=== PATIENT | female | born 1960 | race Caucasian/White ===

== ENCOUNTER 2020-10-20 12:37 | Observation (INO) | payer OTHER ==
[2020-10-20] MEDS ORDERED: ONDANSETRON 4 MG/2 ML VIAL IVP STA (13:56)
[2020-10-20] MEDS ORDERED: SODIUM CHLORIDE 0.9% 1,000 ML IV STA (13:56)
[2020-10-20] MEDS ORDERED: MECLIZINE 12.5 MG TAB PO STA (13:56)
--- NOTE | 2020-10-20 14:06 | ED ---
General Adult HPI - General Source: patient, RN notes reviewed, old records reviewed Mode of arrival: ambulatory Limitations: no limitations <Jose Alfredo Medina - Last Filed: 10/20/20 14:01> <Deidra Martinez - Last Filed: 10/21/20 12:48> - General Chief complaint: Dizziness Stated complaint: Dizzy Time Seen by Provider: 10/20/20 13:46 - History of Present Illness Initial comments: 60-year-old female presenting with chief complaint of dizziness. Symptoms began this morning. She states she feels that the room is spinning this is worse with movement, worse with opening her eyes. She had a similar episode within the past few weeks which resolved without treatment. She has no previous history of CVA or TIA. She has no chest pain. No focal numbness or weakness. No abdominal pain. She has some mild nausea. No fever. No other symptoms. (Jose Alfredo Medina) - Related Data Home Medications Medication Instructions Recorded Confirmed Ascorbic Acid [Vitamin C] 500 mg PO DAILY 10/20/20 10/20/20 Calcium Carbonate/Vitamin D3 1 tab PO DAILY 10/20/20 10/20/20 [Calcium 600-Vit D3 5 Mcg (200 Iu)] Cholecalciferol [Vitamin D3 (25 50 mcg PO DAILY 10/20/20 10/20/20 Mcg = 1000 Iu)] Multivitamin [Multivitamins Adult 1 tab PO DAILY 10/20/20 10/20/20 Gummies] Zinc 50 mg PO DAILY 10/20/20 10/20/20 Previous Rx's Medication Instructions Recorded Famotidine [Pepcid] 20 mg PO BID #20 tablet 10/21/20 Meclizine [Antivert] 12.5 mg PO TID PRN #30 tablet 10/21/20 amLODIPine [Norvasc] 5 mg PO DAILY #30 tab 10/21/20 methylPREDNISolone Dose Pack 4 mg PO DIRECTED #21 package 10/21/20 [Medrol Dose Pack] Allergies Allergy/AdvReac Type Severity Reaction Status Date / Time No Known Allergies Allergy Verified 10/20/20 17:39 Review of Systems ROS Other: All systems not noted in ROS Statement are negative. <Jose Alfredo Medina - Last Filed: 10/20/20 14:01> ROS Other: All systems not noted in ROS Statement are negative. <Deidra Martinez Jasmyne - Last Filed: 10/21/20 12:48> ROS Statement: Those systems with pertinent positive or pertinent negative responses have been documented in the HPI. Past Medical History Past Medical History: No Reported History History of Any Multi-Drug Resistant Organisms: None Reported Past Surgical History: Section, Cholecystectomy, Tonsillectomy Past Psychological History: No Psychological Hx Reported Smoking Status: Never smoker Past Alcohol Use History: None Reported Past Drug Use History: None Reported <BrandennicoleJose Alfredo Dalton - Last Filed: 10/20/20 14:01> General Exam Limitations: no limitations General appearance: alert, in no apparent distress Head exam: Present: atraumatic, normocephalic Eye exam: Present: normal appearance, PERRL ENT exam: Present: normal exam, TM's normal bilaterally Neck exam: Present: normal inspection. Absent: tenderness, meningismus Respiratory exam: Present: normal lung sounds bilaterally, respiratory distress Cardiovascular Exam: Present: regular rate, normal rhythm GI/Abdominal exam: Present: soft. Absent: distended, tenderness, guarding Extremities exam: Present: normal inspection, normal capillary refill. Absent: calf tenderness Neurological exam: Present: alert, oriented X3, CN II-XII intact, other (Normal strength throughout, no limb ataxia, normal [id number] bilaterally.). Absent: motor sensory deficit Psychiatric exam: Present: normal affect, normal mood Skin exam: Present: warm, dry, intact. Absent: cyanosis, diaphoretic <AgathabritniJose Alfredo N - Last Filed: 10/20/20 14:01> Course <WilburchaseDeidra Jasmyne - Last Filed: 10/21/20 12:48> Vital Signs 10/20/20 10/20/20 10/20/20 12:39 16:54 20:54 Temperature 98.5 F Pulse Rate 77 70 70 Respiratory 18 18 16 Rate Blood Pressure 162/97 173/91 157/73 O2 Sat by Pulse 98 99 100 Oximetry 10/20/20 10/21/20 22:06 00:07 Temperature Pulse Rate 70 76 Respiratory 16 16 Rate Blood Pressure 168/93 167/84 O2 Sat by Pulse 100 100 Oximetry - Reevaluation(s) Reevaluation #1: 10/20/20 18:[address] Burch who is recommended steroids - 40 mg q8 for vertigo (Deidra Hamilton) EKG Findings - EKG Comments: EKG Findings:: EKG: Normal sinus rhythm, rate 75 NJ interval 120, QRS duration 92, QTC 428, no ST segment elevation. <Jose Alfredo Medina Dalton - Last Filed: 10/20/20 14:01> Medical Decision Making - Lab Data Result diagrams: 10/20/20 14:08 10/20/20 14:08 <Deidra Martinez - Last Filed: 10/21/20 12:48> - Medical Decision Making I evaluated the patient myself. Patient continues to have persistent symptoms after medication administration. I did review the imaging with the patient. She still is unable to get up, open her eyes and ambulate to the bathroom I did recommend hospital admission for which the patient did agree to. Spoke with Dr. dailey who requested that I speak with neurology. I did speak with Dr. Burch who recommends that we attempt to try steroids. Patient will be started on 40 mg every 8 hours. Patient agreed to this plan and she is currently awaiting a bed on the floor (Deidra Martinez) - Lab Data Lab Results 10/20/20 10/20/20 10/20/20 Range/Units 14:08 14:08 14:08 WBC 8.3 (3.8-10.6) k/uL RBC 4.76 (3.80-5.40) m/uL Hgb 15.3 (11.4-16.0) gm/dL Hct 43.6 (34.0-46.0) % MCV 91.7 (80.0-100.0) fL MCH 32.1 (25.0-35.0) pg MCHC 35.0 (31.0-37.0) g/dL RDW 11.6 (11.5-15.5) % Plt Count 215 (150-450) k/uL MPV 7.7 Neutrophils % 80 % Lymphocytes % 15 % Monocytes % 4 % Eosinophils % 1 % Basophils % 1 % Neutrophils # 6.6 (1.3-7.7) k/uL Lymphocytes # 1.2 (1.0-4.8) k/uL Monocytes # 0.3 (0-1.0) k/uL Eosinophils # 0.1 (0-0.7) k/uL Basophils # 0.1 (0-0.2) k/uL PT 11.0 (9.0-12.0) sec INR 1.0 (<1.2) Sodium (137-145) mmol/L Potassium (3.5-5.1) mmol/L Chloride (98-107) mmol/L Carbon Dioxide (22-30) mmol/L Anion Gap mmol/L BUN (7-17) mg/dL Creatinine (0.52-1.04) mg/dL Est GFR (CKD-EPI)AfAm (>60 ml/min/1.73 sqM) Est GFR (CKD-EPI)NonAf (>60 ml/min/1.73 sqM) Glucose (74-99) mg/dL Calcium (8.4-10.2) mg/dL Total Bilirubin (0.2-1.3) mg/dL AST (14-36) U/L ALT (4-34) U/L Alkaline Phosphatase (38-126) U/L Troponin I (0.000-0.034) ng/mL Total Protein (6.3-8.2) g/dL Albumin (3.5-5.0) g/dL TSH (0.465-4.680) mIU/L Urine Color Light Yellow Urine Appearance Cloudy H (Clear) Urine pH 6.5 (5.0-8.0) Ur Specific [place] 1.023 (1.001-1.035) Urine Protein Negative (Negative) Urine Glucose (UA) Negative (Negative) Urine Ketones Negative (Negative) Urine Blood Negative (Negative) Urine Nitrite Negative (Negative) Urine Bilirubin Negative (Negative) Urine Urobilinogen <2.0 (<2.0) mg/dL Ur Leukocyte Esterase Negative (Negative) Urine RBC 1 (0-5) /hpf Ur Squamous Epith Cells <1 (0-4) /hpf Urine Mucus Rare H (None) /hpf 10/20/20 10/20/20 10/20/20 Range/Units 14:08 14:08 14:08 WBC (3.8-10.6) k/uL RBC (3.80-5.40) m/uL Hgb (11.4-16.0) gm/dL Hct (34.0-46.0) % MCV (80.0-100.0) fL MCH (25.0-35.0) pg MCHC (31.0-37.0) g/dL RDW (11.5-15.5) % Plt Count (150-450) k/uL MPV Neutrophils % % Lymphocytes % % Monocytes % % Eosinophils % % Basophils % % Neutrophils # (1.3-7.7) k/uL Lymphocytes # (1.0-4.8) k/uL Monocytes # (0-1.0) k/uL Eosinophils # (0-0.7) k/uL Basophils # (0-0.2) k/uL PT (9.0-12.0) sec INR (<1.2) Sodium 138 (137-145) mmol/L Potassium 4.5 (3.5-5.1) mmol/L Chloride 107 (98-107) mmol/L Carbon Dioxide 24 (22-30) mmol/L Anion Gap 7 mmol/L BUN 18 H (7-17) mg/dL Creatinine 0.59 (0.52-1.04) mg/dL Est GFR (CKD-EPI)AfAm >90 (>60 ml/min/1.73 sqM) Est GFR (CKD-EPI)NonAf >90 (>60 ml/min/1.73 sqM) Glucose 106 H (74-99) mg/dL Calcium 9.4 (8.4-10.2) mg/dL Total Bilirubin 0.6 (0.2-1.3) mg/dL AST 27 (14-36) U/L ALT 15 (4-34) U/L Alkaline Phosphatase 57 (38-126) U/L Troponin I <0.012 (0.000-0.034) ng/mL Total Protein 7.3 (6.3-8.2) g/dL Albumin 4.4 (3.5-5.0) g/dL TSH 1.480 (0.465-4.680) mIU/L Urine Color Urine Appearance (Clear) Urine pH (5.0-8.0) Ur Specific [place] (1.001-1.035) Urine Protein (Negative) Urine Glucose (UA) (Negative) Urine Ketones (Negative) Urine Blood (Negative) Urine Nitrite (Negative) Urine Bilirubin (Negative) Urine Urobilinogen (<2.0) mg/dL Ur Leukocyte Esterase (Negative) Urine RBC (0-5) /hpf Ur Squamous Epith Cells (0-4) /hpf Urine Mucus (None) /hpf Disposition <Jose Alfredo Medina - Last Filed: 10/20/20 14:01> Is patient prescribed a controlled substance at d/c from ED?: No Decision to Admit Reason: Admit from EC Decision Date: 10/20/20 Decision Time: 17:46 <Deidra Martinez - Last Filed: 10/21/20 12:48> Clinical Impression: Vertigo Disposition: ADMITTED IP TO THIS HOSP Condition: Stable
[2020-10-20 14:23] LABS: Basophils # (A) 0.1 k/uL (0-0.2); Basophils % (A) 1 %; Eosinophils # (A) 0.1 k/uL (0-0.7); Eosinophils % (A) 1 %; HCT 43.6 % (34.0-46.0); HGB 15.3 gm/dL (11.4-16.0); Lymphocytes # (A) 1.2 k/uL (1.0-4.8); Lymphocytes % (A) 15 %; MCH 32.1 pg (25.0-35.0); MCV 91.7 fL (80.0-100.0); Mean Platelet Volume 7.7; Monocytes # (A) 0.3 k/uL (0-1.0); Monocytes % (A) 4 %; Neutrophils # (A) 6.6 k/uL (1.3-7.7); Neutrophils % (A) 80 %; Platelet Count 215 k/uL (150-450); RBC 4.76 m/uL (3.80-5.40); RDW 11.6 % (11.5-15.5); WBC 8.3 k/uL (3.8-10.6)
[2020-10-20 14:33] LABS: ALT 15 U/L (4-34); AST 27 U/L (14-36); African American GFR (CKD) >90 (>60 ml/min/1.73 sqM); Albumin 4.4 g/dL (3.5-5.0); Alkaline Phosphatase 57 U/L (38-126); Anion Gap 7 mmol/L; Blood Urea Nitrogen 18 mg/dL (7-17); Calcium 9.4 mg/dL (8.4-10.2); Carbon Dioxide 24 mmol/L (22-30); Chloride 107 mmol/L (98-107); Glucose 106 mg/dL (74-99); Non-African American GFR(CKD) >90 (>60 ml/min/1.73 sqM); Sodium 138 mmol/L (137-145); Total Bilirubin 0.6 mg/dL (0.2-1.3); Total Protein 7.3 g/dL (6.3-8.2)
[2020-10-20 14:36] LABS: Potassium 4.5 mmol/L (3.5-5.1)
[2020-10-20] MEDS ORDERED: LORazepam 2 MG/ML INJ IV STA (14:58)
[2020-10-20] MEDS ORDERED: SODIUM CHLORIDE 0.9% 500 ML 500 ML IV ONE (14:58)
--- NOTE | 2020-10-20 14:59 | CT ---
EXAMINATION TYPE: CT brain wo con DATE OF EXAM: 10/20/2020 COMPARISON: None HISTORY: Dizziness CT DLP: 1123.4 mGycm Automated exposure control for dose reduction was used. FINDINGS: Mild generalized degenerative change. No midline shift or mass effect. No acute hemorrhage. Calvarium is intact. Craniocervical junction maintained. No significant changes of sinus disease. Orb its are symmetric. There is nodular prominence the basilar tip. IMPRESSION: 1. No evidence of acute hemorrhage or mass effect. 2. Nodular prominence the basilar tip recommend short-term follow-up [facility] [place] to exclude small aneurysm.
[2020-10-20] MEDS ORDERED: ASPIRIN 325 MG TAB PO STA (15:05)
--- NOTE | 2020-10-20 16:32 | CT ---
EXAMINATION TYPE: CT angio head neck DATE OF EXAM: 10/20/2020 HISTORY: Dizziness and weakness. COMPARISON: None. CT DLP: 625.4 mGycm. Automated Exposure Control for Dose Reduction was Utilized. TECHNIQUE: CTA scan of the head and neck are performed with IV Contrast, patient injected with 65 mL of Isovue 370, axial images are obtained, coronal and sagittal reformatted images are reviewed. Thre e-D reconstructed images are created on an independent workstation and reviewed. FINDINGS: Carotid/Vascular Structures: Poor visualization of origin of vessels from aortic arch due to artifact from adjacent highly opacified left subclavian artery. Suspect normal three-vessel origin. There is no significant plaque or stenosis in the common or internal carotid arteries bilaterally including at the level of bilateral carotid bulbs. Bilateral external carotid arteries without significant plaque or stenosis. Codominant vertebrobasilar system patent to basilar junction. No significant focal stenosis or aneury sm in the posterior circulation. Hypoplastic bilateral posterior communicating arteries. Images of th e anterior circulation show patent anterior communicating artery. There is no significant focal steno sis or aneurysmal change seen. Other: No additional significant abnormality. IMPRESSION: No significant stenosis in common or internal carotid arteries bilaterally. No significa nt stenosis or aneurysm at the level of the [place].
[2020-10-20] MEDS ORDERED: NALOXONE 0.4 MG/ML 1 ML VIAL IV PRN (17:46)
[2020-10-20] MEDS ORDERED: ONDANSETRON 4 MG/2 ML VIAL IVP PRN (17:53)
[2020-10-20 18:42] LABS: Appearance,Urine Cloudy (Clear); Bilirubin,Urine Negative (Negative); Blood,Urine Negative (Negative); Color,Urine Light Yellow; Glucose,Urine (UA) Negative (Negative); Ketones,Urine Negative (Negative); Leukocyte Esterase,Urine Negative (Negative); Mucus,Urine Rare /hpf; Nitrite,Urine Negative (Negative); PH, Urine 6.5 (5.0-8.0); Protein,Urine Negative (Negative); RBC,Urine 1 /hpf (0-5); Specific Gravity,Urine 1.023 (1.001-1.035); Squamous Epithelial Cell,Urine <1 /hpf (0-4); Urobilinogen,Urine <2.0 mg/dL (<2.0)
[2020-10-20] MEDS: methylPREDNISolone SOD SUCCI 40 MG/ML 1 ML VIAL IV SCH (20:48)
[2020-10-20 20:55] VITALS: RESP 16
[2020-10-21] MEDS: SODIUM CHLORIDE 0.9% 1,000 ML IV SCH ×2 (00:14→05:37)
[2020-10-21] MEDS: methylPREDNISolone SOD SUCCI 40 MG/ML 1 ML VIAL IV SCH ×2 (02:03→10:50)
[2020-10-21 07:36] VITALS: TEMP 97.5
[2020-10-21] MEDS: MECLIZINE 25 MG TAB PO PRN ×2 (08:00→15:43)
[2020-10-21] MEDS ORDERED: ACETAMINOPHEN TAB 325 MG TAB PO PRN (10:51)
[2020-10-21 10:59] VITALS: PULSE 85
--- NOTE | 2020-10-21 11:44 | P.CNNES ---
History of Present Illness Consult date: 10/21/20 Requesting physician: Deidra Martinez Reason for Consult: Acute intractable vertigo History of Present Illness: Patient is a 60-year-old female who came to the hospital yesterday at 12:39 PM came for evaluation of vertigo, that started yesterday morning on waking up. Patient states that she has developed bilateral tinnitus for last 2 years and also some hearing loss of the same period of time. About 3-4 weeks ago she had her first episode of vertigo, when she was downstairs cleaning when she developed vertigo. She sat down in the symptoms passed in 3-5 minutes. A week ago she had another episode that lasted for 5 minutes. Last Tuesday, 3 days ago she had a similar episode lasted for about half an hour. Yesterday she was doing things around the house, and it hit her. She laid down, waited for couple hours for the past. When the symptoms persisted, she decided to come to the ER. She denies any facial droop, slurred speech, diplopia loss of vision blurred vision, numbness tingling focal weakness or any stroke symptoms. No pain in the ear. Denies any recent upper respiratory infection. She does have some sinus problems for which she takes Flonase. Vital signs on arrival blood pressure 162/97, pulse rate 77, temperature 98.5. CT head showed no evidence of acute hemorrhage or mass effect. Nodular prominence of the basilar tip recommend short-term follow-up with [facility] [place] to exclude small aneurysm. On my review, there is a mucocele present in the left maxillary sinus. Some mucus membrane thickening of bilateral maxillary sinuses, but other paranasal sinuses are clear. EAC is clear. CTA of head and neck showed no significant stenosis in common or internal carotid arteries bilaterally. No significant stenosis or aneurysm at the level of [place] of [place]. EKG shows normal sinus rhythm, blood test with normal CBC, PT/INR, electrolytes renal functions, hepatic panel, negative troponin UA. Influenza screen, RSV negative. SARS-CoV-2 PCR negative. Patient was given Antivert without improvement. Patient was started on Solu- Medrol 40 mg every 6 hours and has not noticed any improvement. Patient has been noticing some bitemporal headache which she rates 3-4/10. She had just nausea yesterday but no vomiting. Patient denies tobacco. She has hypertension no diabetes. She does not take any antiplatelet medication. Patient states that she feels better when she lays on the left side. Did not have any vertigo when she rolled over to the right side. Patient still feels dizzy although better than yesterday. Review of Systems Denies any chest pain shortness of breath wheezing or cough. Denies any double vision or loss of vision. She has hearing loss, tinnitus. No numbness tingling or focal weakness. All other review of systems noncontributory except for HPI. She feels off balance only when she is dizzy otherwise no problems with balance. Past Medical History Past Medical History: No Reported History History of Any Multi-Drug Resistant Organisms: None Reported Past Surgical History: Section, Cholecystectomy, Tonsillectomy Past Psychological History: No Psychological Hx Reported Smoking Status: Never smoker Past Alcohol Use History: None Reported Past Drug Use History: None Reported Medications and Allergies Home Medications Medication Instructions Recorded Confirmed Type Ascorbic Acid [Vitamin C] 500 mg PO DAILY 10/20/20 10/20/20 History Calcium Carbonate/Vitamin D3 1 tab PO DAILY 10/20/20 10/20/20 History [Calcium 600-Vit D3 5 Mcg (200 Iu)] Cholecalciferol [Vitamin D3 (25 50 mcg PO DAILY 10/20/20 10/20/20 History Mcg = 1000 Iu)] Multivitamin [Multivitamins Adult 1 tab PO DAILY 10/20/20 10/20/20 History Gummies] Zinc 50 mg PO DAILY 10/20/20 10/20/20 History Famotidine [Pepcid] 20 mg PO BID #20 tablet 10/21/20 Rx Meclizine [Antivert] 12.5 mg PO TID PRN #30 tablet 10/21/20 Rx amLODIPine [Norvasc] 5 mg PO DAILY #30 tab 10/21/20 Rx methylPREDNISolone Dose Pack 4 mg PO DIRECTED #21 package 10/21/20 Rx [Medrol Dose Pack] Allergies Allergy/AdvReac Type Severity Reaction Status Date / Time No Known Allergies Allergy Verified 10/20/20 17:39 Physical Examination - Vital Signs Vital Signs: Vital Signs Temp Pulse Pulse Resp BP BP Pulse Ox 10/21/20 07:00 97.5 F L 78 16 154/79 95 10/21/20 02:00 97.6 F 82 16 162/79 95 10/21/20 00:07 76 16 167/84 100 10/20/20 22:06 70 16 168/93 100 10/20/20 20:54 70 16 157/73 100 10/20/20 16:54 70 18 173/91 99 10/20/20 12:39 98.5 F 77 18 162/97 98 Intake and Output 10/20/20 10/21/20 10/21/20 22:59 06:59 14:59 Other: Voiding Method Toilet # Voids 1 Weight 102.058 kg Patient is a late middle aged female, very pleasant, in no acute distress. Patient is alert awake oriented to time place and person. Speech and language functions are normal. Attention, concentration and fund of knowledge is adequate. On cranial examination, pupils are round and reacting to light, visual peters are full on confrontation, extraocular muscles are intact, with torsional nystagmus noted only on the left side. Face is symmetric, tongue protrudes to the midline. Palatal elevation and sensation normal, hearing is at least moderately decreased even for routine conversation. Shoulder shrug normal, facial sensation normal. Shoulder shrug normal. On muscle strength testing, there is no pronator drift and the strength is normal in arms and legs distally and proximally. Deep tendon reflexes are 2+ all over, plantars downgoing. Sensory to touch is equal with no neglect. Cerebellar function showed no ataxia for [id number], or [id number] testing. No dysdiadochokinesia. Tone and bulk of muscles normal. Patient did not feel dizzy when she rolled over onto the right or the left. Only quick head motion makes her dizzy. Gait deferred. On general examination, there is no carotid bruit or murmur, S1-S2 audible. Abdomen is soft nontender. Chest is clear. Peripheral pulses are present. No edema. Orthostatics were checked, supine blood pressure was 171/90, sitting up was 176/101 and standing 152/99. Results - Laboratory Findings CBC and BMP: 10/20/20 14:08 10/20/20 14:08 Abnormal Lab Findings: Abnormal Labs 10/20/20 10/20/20 14:08 14:08 BUN 18 H Glucose 106 H Urine Appearance Cloudy H Urine Mucus Rare H Assessment and Plan Assessment: * Acute recurrent vertigo, likely due to vestibular neuronitis (left side) versus Mnire's disease. Patient's neurological examination is normal/nonfocal except for left-sided nystagmus. Patient has significantly decreased hearing, tinnitus, all suggestive of peripheral vestibular dysfunction. * Hypertension, uncontrolled. * Chronic tinnitus, hearing loss. Plan: * Recommended ENT consult, which can be performed as an outpatient. * Medrol Dosepak, Antivert. * Blood pressure is uncontrolled. Would defer to IM. * May start aspirin 81 mg. * Telemetry monitoring showing normal sinus rhythm, no arrhythmia. * We will check B12, folate and TSH 1.48.
--- NOTE | 2020-10-21 11:55 | P.HPIM ---
History of Present Illness 60-year-old pleasant female came in with compensative room spinning around vertigo with the tinnitus status has been going on for about 2 years patient does have some hearing problems as well tinnitus is mostly in the right ear. His vertigo has been going on for a few days much worse today lasted a few seconds worse with movement of the head. One episode lasted for about half an hour. Patient denied any weakness double vision tingling numbness patient does have some problems with an ablation because of vertigo. Neurology evaluated the patient. Patient is on meclizine. I did perform Margarito halspike maneuver which was actually positive with horizontal nystagmus Review of Systems REVIEW OF SYSTEMS: CONSTITUTIONAL: No fever, no malaise, no fatigue. HEENT: No recent visual problems or hearing problems. Denied any sore throat. CARDIOVASCULAR: No chest pain, orthopnea, PND, no palpitations, no syncope. PULMONARY: No shortness of breath, no cough, no hemoptysis. GASTROINTESTINAL: No diarrhea, no nausea, no vomiting, no abdominal pain. NEUROLOGICAL: No headaches, no weakness, no numbness. HEMATOLOGICAL: Denies any bleeding or petechiae. GENITOURINARY: Denies any burning micturition, frequency, or urgency. MUSCULOSKELETAL/RHEUMATOLOGICAL: Denies any joint pain, swelling, or any muscle pain. ENDOCRINE: Denies any polyuria or polydipsia. The rest of the 14-point review of systems is negative. Past Medical History Past Medical History: No Reported History History of Any Multi-Drug Resistant Organisms: None Reported Past Surgical History: Section, Cholecystectomy, Tonsillectomy Past Psychological History: No Psychological Hx Reported Smoking Status: Never smoker Past Alcohol Use History: None Reported Past Drug Use History: None Reported Medications and Allergies Home Medications Medication Instructions Recorded Confirmed Type Ascorbic Acid [Vitamin C] 500 mg PO DAILY 10/20/20 10/20/20 History Calcium Carbonate/Vitamin D3 1 tab PO DAILY 10/20/20 10/20/20 History [Calcium 600-Vit D3 5 Mcg (200 Iu)] Cholecalciferol [Vitamin D3 (25 50 mcg PO DAILY 10/20/20 10/20/20 History Mcg = 1000 Iu)] Multivitamin [Multivitamins Adult 1 tab PO DAILY 10/20/20 10/20/20 History Gummies] Zinc 50 mg PO DAILY 10/20/20 10/20/20 History Famotidine [Pepcid] 20 mg PO BID #20 tablet 10/21/20 Rx amLODIPine [Norvasc] 5 mg PO DAILY #30 tab 10/21/20 Rx methylPREDNISolone Dose Pack 4 mg PO DIRECTED #21 package 10/21/20 Rx [Medrol Dose Pack] Allergies Allergy/AdvReac Type Severity Reaction Status Date / Time No Known Allergies Allergy Verified 10/20/20 17:39 Physical Exam Vitals: Vital Signs Temp Pulse Pulse Pulse Pulse Pulse Resp 10/21/20 10:57 96 107 H 85 10/21/20 07:00 97.5 F L 78 16 10/21/20 02:00 97.6 F 82 16 10/21/20 00:07 76 16 10/20/20 22:06 70 16 10/20/20 20:54 70 16 10/20/20 16:54 70 18 10/20/20 12:39 98.5 F 77 18 BP BP BP BP BP Pulse Ox 10/21/20 10:57 176/101 152/99 171/90 97 10/21/20 07:00 154/79 95 10/21/20 02:00 162/79 95 10/21/20 00:07 167/84 100 10/20/20 22:06 168/93 100 10/20/20 20:54 157/73 100 10/20/20 16:54 173/91 99 10/20/20 12:39 162/97 98 Intake and Output 10/20/20 10/21/20 10/21/20 22:59 06:59 14:59 Other: Voiding Method Toilet # Voids 1 Weight 102.058 kg PHYSICAL EXAMINATION: GENERAL: The patient is alert and oriented x3, not in any acute distress. Well developed, well nourished. HEENT: Pupils are round and equally reacting to light. EOMI. No scleral icterus. No conjunctival pallor. Normocephalic, atraumatic. No pharyngeal erythema. No thyromegaly. CARDIOVASCULAR: S1 and S2 present. No murmurs, rubs, or gallops. PULMONARY: Chest is clear to auscultation, no wheezing or crackles. ABDOMEN: Soft, nontender, nondistended, normoactive bowel sounds. No palpable organomegaly. MUSCULOSKELETAL: No joint swelling or deformity. EXTREMITIES: No cyanosis, clubbing, or pedal edema. NEUROLOGICAL: Gross neurological examination did not reveal any focal deficits. SKIN: No rashes. 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 Patient was evaluated by neurology in the recommending ENT evaluation and Medrol Dosepak. -Uncontrolled elevated blood pressure patient probably has essential hypertension patient will be started on Norvasc Patient will be discharged today
--- NOTE | 2020-10-21 11:56 | P.DS ---
Providers Date of admission: 10/20/20 17:46 Attending physician: Gato Abrams Consults: 10/20/20 17:53 Consult Physician Urgent Consulting Provider: Oskar Burch Consult Reason/Comments: acute intractable vertigo Do you want consulting provider notified?: Yes Primary care physician: Aniyah Salcido [facility] Course: Please refer to my history of present illness for further details Patient Condition at Discharge: Stable Plan - Discharge Summary Discharge Rx Participant: No New Discharge Prescriptions: New Meclizine [Antivert] 12.5 mg PO TID PRN #30 tablet PRN Reason: Vertigo methylPREDNISolone Dose Pack [Medrol Dose Pack] 4 mg PO DIRECTED #21 package amLODIPine [Norvasc] 5 mg PO DAILY #30 tab Famotidine [Pepcid] 20 mg PO BID #20 tablet Continue Calcium Carbonate/Vitamin D3 [Calcium 600-Vit D3 5 Mcg (200 Iu)] 1 tab PO DAILY Zinc 50 mg PO DAILY Cholecalciferol [Vitamin D3 (25 Mcg = 1000 Iu)] 50 mcg PO DAILY Multivitamin [Multivitamins Adult Gummies] 1 tab PO DAILY Ascorbic Acid [Vitamin C] 500 mg PO DAILY Discharge Medication List Ascorbic Acid [Vitamin C] 500 mg PO DAILY 10/20/20 [History] Calcium Carbonate/Vitamin D3 [Calcium 600-Vit D3 5 Mcg (200 Iu)] 1 tab PO DAILY 10/20/20 [History] Cholecalciferol [Vitamin D3 (25 Mcg = 1000 Iu)] 50 mcg PO DAILY 10/20/20 [History] Multivitamin [Multivitamins Adult Gummies] 1 tab PO DAILY 10/20/20 [History] Zinc 50 mg PO DAILY 10/20/20 [History] Famotidine [Pepcid] 20 mg PO BID #20 tablet 10/21/20 [Rx] Meclizine [Antivert] 12.5 mg PO TID PRN #30 tablet 10/21/20 [Rx] amLODIPine [Norvasc] 5 mg PO DAILY #30 tab 10/21/20 [Rx] methylPREDNISolone Dose Pack [Medrol Dose Pack] 4 mg PO DIRECTED #21 package 10/21/20 [Rx] Follow up Appointment(s)/Referral(s): Alverto Willett DO [Doctor of Osteopathic Medicine] - 3 Days Zelenak,Aniyah E, DO [Primary Care Provider] - 3 Days Patient Instructions/Handouts: Vertigo (DC) Activity/Diet/Wound Care/Special Instructions: follow up with ENT Discharge Disposition: HOME SELF-CARE
[2020-10-21 11:58] VITALS: BP 155/96
[2020-10-22 05:34] LABS: Folate, Serum 23.9 ng/mL
== END 2020-10-21 15:49 | disposition home or self-care (01) ==
LOC: EC 12:37 → 1SOBS 17:46 → 6NMEDSUR 19:49
PROVIDERS: ADMIT Hospitalist; ATTEND Hospitalist
DX: G58.9 Mononeuropathy, unspecified (principal); H93.13 Tinnitus, bilateral; I10 Essential (primary) hypertension; H55.09 Other forms of nystagmus; H91.90 Unspecified hearing loss, unspecified ear; E66.9 Obesity, unspecified; Z68.34 Body mass index [BMI] 34.0-34.9, adult; Z20.822 Contact with and (suspected) exposure to COVID-19; Z79.899 Other long term (current) drug therapy; Z90.49 Acquired absence of other specified parts of digestive tract; Z98.891 History of uterine scar from previous surgery
CPT/HCPCS: 96376; 96361; 96374; 96375; 99285; 36415; 94760; 93005; 80053; 84443; 82607; 82746; 84484; 85025; 85610; 81001; 87636; 70496; 70450; 70498; G0378 ×2; J2060; J2920 ×2; J2405; Q9967